=== PATIENT | female | born 1975 | race American Indian/Alaskan Native ===

== ENCOUNTER 2017-05-31 11:00 | Emergency (ER) | payer MEDICAID ==
[2017-05-31 12:20] VITALS: BP 121/76
[2017-05-31 12:42] LABS: Bilirubin,Urine NEG (Negative); Blood,Urine NEG (Negative); Color,Urine Yellow (Yellow); Mucus,Urine FEW /HPF; Nitrite,Urine NEG (Negative); Protein,Urine <15 mg/dL mg/dL (Negative); RBC,Urine < 1.0 /HPF (0.0-6.0); Urobilinogen,Urine < 2.0 mg/dL (<2.0)
[2017-05-31 12:44] LABS: HCG Qualitative,Urine Negative (Negative)
--- NOTE | 2017-05-31 12:52 | Emergency Department Report ---
HPI - General Chief Complaint: Back Pain/Injury Time Seen by Provider: 05/31/17 12:51 - HPI HPI: Patient he reports that she has left flank pain for 2 days. Denies any urinary burning frequency or urgency. She says she's been drinking a lot of cranberry juice. Patient says she wants to make sure she doesn't have a urinary tract infection although she says she thinks she had pulled a muscle. No history of kidney stones. Denies any blood in her urine. Denies any fever or chills. Denies any abdominal pain. Denies any vaginal bleeding or discharge. Last menstrual period was 05/01/2017. Pain is 6 out of 10 achy, crampy and no over- the-counter medication taken. ED Past Medical Hx - Past Medical History Previous Medical History?: Yes Hx Asthma: Yes (as child- resolved) - Surgical History Past Surgical History?: No - Family History Family history: no significant - Social History Smoking Status: Current Every Day Smoker Substance Use Type: Alcohol, Prescribed - Medications Home Medications: Home Medications Medication Instructions Recorded Confirmed Last Taken Type Levothyroxine [Synthroid] 25 mcg PO QAM 01/09/15 01/12/15 01/11/15 09:00 History HYDROcodone/APAP 5-325 [[place] 1 each PO Q6HR PRN #15 tablet 01/12/15 Unknown Rx 5-325 mg TAB] Cyclobenzaprine [Flexeril] 10 mg PO TID PRN 4 Days #12 tablet 05/31/17 Unknown Rx Ibuprofen [Motrin] 600 mg PO Q8H PRN 4 Days #12 tablet 05/31/17 Unknown Rx ED Review of Systems ROS: Stated complaint: FLANK PAIN Other details as noted in HPI Comment: All other systems reviewed and negative Constitutional: no symptoms reported Respiratory: no symptoms reported Cardiovascular: denies: chest pain, palpitations, dyspnea on exertion, orthopnea , edema, syncope, paroxysmal nocturnal dyspnea Gastrointestinal: denies: abdominal pain, nausea, vomiting, diarrhea, constipation Genitourinary: denies: urgency, dysuria, frequency, hematuria, discharge, abnormal menses, dyspareunia Musculoskeletal: back pain. denies: joint swelling, arthralgia, myalgia Skin: denies: rash Neurological: denies: headache, weakness, numbness, paresthesias, confusion, abnormal gait, vertigo Physical Exam - Physical Exam Vital Signs: Vital Signs 05/31/17 12:16 Temperature 98.5 F Pulse Rate 86 Respiratory 18 Rate Blood Pressure 121/76 O2 Sat by Pulse 100 Oximetry General: This is a 44-year-old female well-nourished well-developed in no acute distress. Physical Exam: Head: Normocephalic, atraumatic, no abrasion, no bruising and no contusion. Eyes: Biateral pupils equal and reactive to light, bilateral EOM intact.. Bilateral conjunctival and sclera without injection, normal accommodation. No nystagmus Mouth: Moist, no pharyngeal exudate or erythema. No peritonsillar abscesses. Uvula is midline and oral airways patent. Neck: Supple, No Cervical adenopathy, full range of motion and no C-spine tenderness. No swelling or tracheal deviation normal reflexes Cardiovascular: S1, S2. Regular rate and rhythm. No murmur. Capillary refill is less then 3 seconds. Lungs: Clear to auscultate bilaterally. No rhonchi, wheezes or rales. No chest wall tenderness. No chest contusion. No bruising to chest. MSK: Strength 5/5 in all extremities. No joint deformity or crepitus. Normal inspection. Full range of motion to all extremities. No laceration, abrasion or ecchymotic area noted. Patient able to fully flex and extend bilateral knees without any difficulties. Bilateral knees nontender to palpate. Abdomen: Non-tender to palpate in all quadrants, no guarding or rebound tenderness, positive bowel sounds in all quadrants. Positive left CVA tenderness . No hernia, bruit or mass. No rigidity or distention. Extremities: No clubbing, cyanosis or edema. +2 pulses. No neurovascular compromise Skin: Clean, dry and intact. No rash or lesions. Neurological: GCS at 15, Pt is alert and oriented 3 speech is clear . Bilateral hand contact center consultant strong and equal. Normal gait. Negative Romberg and no pronator drift. Normal Reflexes. No motor or sensory deficit Back: No vertebral tenderness, no paraspinal tenderness. Positive pain with leaning forward to touch her toes. Negative SLR and negative saddle anesthesia . Ambulates without any difficulties. Psych: Normal mood and behavior ED Course Vital Signs 05/31/17 12:16 Temperature 98.5 F Pulse Rate 86 Respiratory 18 Rate Blood Pressure 121/76 O2 Sat by Pulse 100 Oximetry - Reevaluation(s) Reevaluation #1: 05/31/17 13:52 She given Toradol 60 mg IM in emergency room for left flank pain. Urinalysis, CBC and BMP is stable ED Medical Decision Making - Lab Data Result diagrams: 05/31/17 12:45 05/31/17 12:20 Lab Results 05/31/17 05/31/17 05/31/17 Range/Units 12:20 12:29 12:45 WBC 7.3 (4.5-11.0) K/mm3 RBC 3.83 (3.65-5.03) M/mm3 Hgb 9.5 L (10.1-14.3) gm/dl Hct 30.2 L (30.3-42.9) % MCV 79 (79-97) fl MCH 25 L (28-32) pg MCHC 32 (30-34) % RDW 19.6 H (13.2-15.2) % Plt Count 331 (140-440) K/mm3 Lymph % (Auto) 28.1 (13.4-35.0) % [place] % (Auto) 8.4 H (0.0-7.3) % Eos % (Auto) 1.6 (0.0-4.3) % Baso % (Auto) 0.6 (0.0-1.8) % Lymph # 2.1 (1.2-5.4) K/mm3 [place] # 0.6 (0.0-0.8) K/mm3 Eos # 0.1 (0.0-0.4) K/mm3 Baso # 0.0 (0.0-0.1) K/mm3 Seg Neutrophils % 61.3 (40.0-70.0) % Seg Neutrophils # 4.5 (1.8-7.7) K/mm3 Sodium 139 (137-145) mmol/L Potassium 3.9 (3.6-5.0) mmol/L Chloride 102.1 (98-107) mmol/L Carbon Dioxide 23 (22-30) mmol/L Anion Gap 18 mmol/L BUN 16 (7-17) mg/dL Creatinine 0.8 (0.7-1.2) mg/dL Estimated GFR > 60 ml/min BUN/Creatinine Ratio 20 % Glucose 92 (65-100) mg/dL Calcium 8.7 (8.4-10.2) mg/dL Total Bilirubin 0.20 (0.1-1.2) mg/dL AST 14 (5-40) units/L ALT 11 (7-56) units/L Alkaline Phosphatase 78 (35-129) units/L Total Protein 7.8 (6.3-8.2) g/dL Albumin 4.0 (3.9-5) g/dL Albumin/Globulin Ratio 1.1 % Urine Color Yellow (Yellow) Urine Turbidity Clear (Clear) Urine pH 5.0 (5.0-7.0) Ur Specific [place] 1.023 (1.003-1.030) Urine Protein <15 mg/dl (Negative) mg/dL Urine Glucose (UA) Neg (Negative) mg/dL Urine Ketones Neg (Negative) mg/dL Urine Blood Neg (Negative) Urine Nitrite Neg (Negative) Urine Bilirubin Neg (Negative) Urine Urobilinogen < 2.0 (<2.0) mg/dL Ur Leukocyte Esterase Neg (Negative) Urine WBC (Auto) 1.0 (0.0-6.0) /HPF Urine RBC (Auto) < 1.0 (0.0-6.0) /HPF U Epithel Cells (Auto) 1.0 (0-13.0) /HPF Urine Mucus Few /HPF Urine HCG, Qual Negative (Negative) Patient with anemia which is chronic. - Medical Decision Making ED course: A CT scan here reports left flank pain 2 days. She is not having any urinary symptoms. She reports that she wanted to get checked if she has a urinary tract infection but thinks it's from muscle strain. Vital signs are normal, she received Toradol 60 mg IM in the emergency room for pain. Urinalysis negative for any infection and all values are normal. CBC shows patient with anemia which is not new. Patient says she has anemia. Chemistries normal. Urine test negative. I went over lab work with patient and discussed with her that she has lumbar muscle strain and will need to rest for a day and I'll put her on Flexeril and Motrin. Patient was undescended discharge instruction and treatment plan and discharged home with prescription for Flexeril and Motrin and if her back pain continues to follow up with orthopedic and her primary care physician. Critical care attestation.: If time is entered above; I have spent that time in minutes in the direct care of this critically ill patient, excluding procedure time. ED Disposition Clinical Impression: Muscle spasm of back Anemia Qualifiers: Anemia type: unspecified type Qualified Code(s): D64.9 - Anemia, unspecified Disposition: DC-01 TO HOME OR SELFCARE Is pt being admited?: No Does the pt Need Aspirin: No Condition: Stable Instructions: Anemia (ED), Low Back Strain (ED), Core Strengthening Exercises ( GEN) Additional Instructions: Please follow up with a primary care physician and orthopedic doctor in 2 days. Rest Increase the fluid intake Take Motrin and Flexeril for pain but please do not drive or operate heavy machinery while taking Flexeril as this medication causes drowsiness Prescriptions: Cyclobenzaprine [Flexeril] 10 mg PO TID PRN 4 Days #12 tablet PRN Reason: Muscle Spasm Ibuprofen [Motrin] 600 mg PO Q8H PRN 4 Days #12 tablet PRN Reason: Pain Referrals: your, primary care physician [Other] - 06/02/17 ERNESTO PATEL MD [Staff Physician] - 06/02/17 Forms: Work/School Release Form(ED)
[2017-05-31] MEDS ORDERED: TORADOL IM ONE (12:55)
[2017-05-31 13:00] LABS: Basophils % (Auto) 0.6 % (0.0-1.8); Eosinophils # (Auto) 0.1 K/mm3 (0.0-0.4); Eosinophils % (Auto) 1.6 % (0.0-4.3); Hematocrit 30.2 % (30.3-42.9); Hemoglobin 9.5 gm/dl (10.1-14.3); Lymphocytes # (Auto) 2.1 K/mm3 (1.2-5.4); Lymphocytes % (Auto) 28.1 % (13.4-35.0); Mean Corpuscular HGB Conc 32 % (30-34); Mean Corpuscular Volume 79 fl (79-97); Monocytes # (Auto) 0.6 K/mm3 (0.0-0.8); Monocytes % (Auto) 8.4 % (0.0-7.3); Platelet Count 331 K/mm3 (140-440); Red Blood Count 3.83 M/mm3 (3.65-5.03); Red Cell Distribution Width 19.6 % (13.2-15.2)
[2017-05-31 13:03] LABS: Mean Corpuscular Hemoglobin 25 pg (28-32)
[2017-05-31 13:20] LABS: Alanine Aminotransferase 11 units/L (7-56); BUN/Creatinine Ratio 20; Blood Urea Nitrogen 16 mg/dL (7-17); Calcium 8.7 mg/dL (8.4-10.2); Hemolysis Index 4
== END 2017-05-31 14:08 | disposition home or self-care (01) ==
LOC: ED 11:00
DX: D64.9 Anemia, unspecified (principal); J45.909 Unspecified asthma, uncomplicated; F17.200 Nicotine dependence, unspecified, uncomplicated
CPT/HCPCS: 36415; 80053; 81001; 81025; 85025; 96372; 99283; J1885

== ENCOUNTER 2017-11-21 13:48 | Emergency (ER) | payer OTHER, BC ==
[2017-11-21 13:55] VITALS: BP 118/76
[2017-11-21] MEDS ORDERED: MOTRIN PO ONE (14:11)
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
--- NOTE | 2017-11-21 14:44 | XRay Report ---
LEFT KNEE, 3 views: History: Left knee pain. The bony architecture is intact without evidence of fracture or dislocation. No significant soft tissue abnormality is seen. IMPRESSION: Normal left knee.
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
== END 2017-11-21 15:03 | disposition home or self-care (01) ==
LOC: ED 13:48
DX: S86.912A Strain of unspecified muscle(s) and tendon(s) at lower leg level, left leg, initial encounter (principal); V09.9XXA Pedestrian injured in unspecified transport accident, initial encounter; Y93.89 Activity, other specified; Y92.89 Other specified places as the place of occurrence of the external cause; Y99.8 Other external cause status
CPT/HCPCS: 99283

== ENCOUNTER 2017-11-27 13:51 | Outpatient (CLI) | payer BC ==
--- NOTE | 2017-11-27 23:27 | XRay Report ---
FINAL REPORT PROCEDURE: Right and left feet. TECHNIQUE: Three views of each foot. HISTORY: Other hereditary and idiopathic neuropathies, INFECTION ALEX FEET COMPARISON: No prior studies are available for comparison. FINDINGS: Right foot: The bones appear intact without fracture. There are no signs of osteomyelitis. The joint spaces appear satisfactory. There is a moderately severe hallux valgus deformity. There are no radiopaque foreign bodies identified. The soft tissues are unremarkable. Left foot: The bones appear intact without fracture or other osseous abnormality. There is mild narrowing of the 1st metatarsal-phalangeal joint. There is a moderately severe hallux valgus deformity. The soft tissues are unremarkable. There are no radiopaque foreign bodies identified. IMPRESSION: Hallux valgus deformities in both feet.
== END 2017-11-27 13:52 | disposition home or self-care (01) ==
LOC: XRAY 13:51
PROVIDERS: ATTEND Podiatrist Foot & Ankle Surgery
DX: M20.12 Hallux valgus (acquired), left foot (principal); M20.11 Hallux valgus (acquired), right foot; J45.909 Unspecified asthma, uncomplicated; E03.9 Hypothyroidism, unspecified